=== PATIENT | female | born 1990 | race Caucasian/White ===

== ENCOUNTER 2017-10-31 11:55 | Outpatient (CLI) | payer MEDICAID, BC | END 2017-10-31 13:35 | disposition home or self-care (01) | LOC: OBT 11:55 → L-D 11:55 → OBT 13:35 | DX: O36.63X0 Maternal care for excessive fetal growth, third trimester, not applicable or unspecified (principal); Z3A.37 37 weeks gestation of pregnancy | CPT/HCPCS: 76818 ==